=== PATIENT | female | born 1955 | race Caucasian/White ===

== ENCOUNTER 2019-01-29 10:58 | Emergency (ER) | payer OTHER ==
[~2019-01-29] VITALS: Ht 147.3 cm; Wt 54.7 kg
[~2019-01-29 10:58] MED LIST: BENA20TA4 PO; CIPR500T4 PO; DIPH1TAB PO; HYDR-4012 PO; MECL25TA2 PO; METR500T PO
[2019-01-29 11:00] VITALS: Ht 147.3 cm; Wt 54.7 kg
[2019-01-29] MEDS ORDERED: KETOROLAC 15 MG INJ IV STA (17:24)
[2019-01-29] MEDS ORDERED: IBUP-1542 PO ×2 (18:49→20:59)
[2019-01-29] MEDS ORDERED: BENA20TA4 PO (18:49)
[2019-01-29] MEDS ORDERED: PARACETAMOL PO (18:56)
[2019-01-29 21:01] VITALS: BP 145/86; PULSE 54; RESP 16
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
== END 2019-01-29 21:02 | disposition home or self-care (01) ==
LOC: FTE 10:58 → E/R 21:02
DX: S12.9XXA Fracture of neck, unspecified, initial encounter (principal); I10 Essential (primary) hypertension; S22.9XXA Fracture of bony thorax, part unspecified, initial encounter for closed fracture; R94.02 Abnormal brain scan; V89.3XXA Person injured in unspecified nonmotor-vehicle accident, traffic, initial encounter
CPT/HCPCS: 70450; 71250; 72125; 72141; 80053; 83690; 85025; 85610; 85730; 93005; J1885; 36415; 96374